=== PATIENT | female | born 1990 | race Caucasian/White ===

== ENCOUNTER 2020-08-05 05:44 | Inpatient (IN) | payer BC, OTHER ==
[2020-08-05] MEDS ORDERED: DINOPROSTONE 10 MG VAGINAL SUPPOSITORY VG ONE (08:56)
[2020-08-05] MEDS ORDERED: BUTORPHANOL TARTRATE 2 MG/ML VIAL IVPUSH PRN (08:56)
[2020-08-05] MEDS ORDERED: PROMETHAZINE HCL 25 MG/1 ML VIAL IVPUSH ONE (08:56)
[2020-08-05 08:58] LABS: BASO % 0.5 % (0-2.0); EOS % 0.5 % (0-4.5); HEMATOCRIT 39.1 % (32.4-45.2); HEMOGLOBIN 13.5 GM/dL (10.7-15.3); LYMPH % 11.1 % (8-40); MCH 35.1 pg (25.7-33.7); MCHC 34.4 g/dl (32.0-36.0); MEAN PLT VOLUME 8.7 fl (7.5-11.1); MONO % 10.6 % (3.8-10.2); NEUT % 77.3 % (42.8-82.8); PLATELET COUNT 192 K/MM3 (134-434); RBC 3.83 M/mm3 (3.60-5.2); RDW 13.3 % (11.6-15.6); WHITE BLOOD COUNT 13.2 K/mm3 (4.0-10.0)
[2020-08-05] MEDS ORDERED: AMPICILLIN - 2 GM in SODIUM CHLORIDE 100 ML IVPB ONE (08:58)
[2020-08-05] MEDS ORDERED: DEXTROSE 5%-LACTATED RINGERS 1,000 ML IV SCH (09:00)
--- NOTE | 2020-08-05 09:00 | HP ---
Past Medical History - Primary Care Physician PCP:: Matthew Jc - Admission Chief Complaint: 40 weeks , for induction of labor History of Present Illness: 30 yo f 40 weeks came to L&D with vaginal spotting and cramps, cx 2 cm 70 vx -3 , mi ,fhr cat 1, irregular contraction , induction with favaroable cervix discussed , wants to be induced , risks of cervidil discussed History Source: Patient Limitations to Obtaining History: No Limitations - Past Medical History ...: 1 ...Para: 0 ...Term: 0 ...: 0 ...Spon : 0 ...Induced : 0 ...Living Children: 0 ...LMP: 11/02/19 ... Weeks Gestation by Dates: 39.3 ...EDC by Dates: 08/09/20 ...EDC by Sono: 08/05/20 - Past Surgical History Hx Myomectomy: No Hx Transabdominal Cerclage: No - Smoking History Have you smoked in the past 12 months: No - Alcohol/Substance Use Hx Alcohol Use: No History of Substance Use: reports: None - Social History History of Recent Travel: No Home Medications - Allergies Allergies/Adverse Reactions: Allergies Allergy/AdvReac Type Severity Reaction Status Date / Time No Known Allergies Allergy Verified 08/05/20 07:30 - Home Medications Home Medications: Ambulatory Orders Ferrous Sulfate [Iron] 325 mg PO DAILY 08/05/20 Pnv No.95/Ferrous Fum/Folic AC [ Formula] 1 each PO DAILY 08/05/20 Review of Systems - Review of Systems Constitutional: reports: No Symptoms Eyes: reports: No Symptoms HENT: reports: No Symptoms Neck: reports: No Symptoms Cardiovascular: reports: No Symptoms Respiratory: reports: No Symptoms Gastrointestinal: reports: No Symptoms Genitourinary: reports: No Symptoms Breasts: reports: No Symptoms Reported Musculoskeletal: reports: No Symptoms Integumentary: reports: No Symptoms Neurological: reports: No Symptoms Endocrine: reports: No Symptoms Hematology/Lymphatic: reports: No Symptoms Psychiatric: reports: No Symptoms Physical Exam - Maternity Vital Signs: Vital Signs Temperature 98.1 F 08/05/20 05:44 Pulse Rate 108 H 08/05/20 05:44 Respiratory Rate 20 08/05/20 05:44 Blood Pressure 116/70 08/05/20 05:44 O2 Sat by Pulse Oximetry (%) Constitutional: Yes: Well Nourished, No Distress, Calm Eyes: Yes: WNL, Conjunctiva Clear, EOM Intact HENT: Yes: WNL, Atraumatic, Normocephalic Neck: Yes: WNL, Supple, Trachea Midline Cardiovascular: Yes: WNL, Regular Rate and Rhythm Breast(s): Yes: WNL - Abdominal Exam/OB Fundal Height: 38 Number of Fetuses: Single Presentation: Vertex Contractions: Yes Regularity: Irregular Intensity: Mild Monitor Mode: External Heart Rate Location: [facility] Category: I Accelerations: Non-Uniform Decelerations: None - Vaginal Exam/OB Vaginal Bleeding: Bloody Show Speculum Exam: No Dilatation (cm): 2 Effacement (%): 70 Amniotic Membrane Status: Intact Nitrazine Test: Negative Presentation: Vertex/Position Station: -3 - Physical Exam Edema: Yes Edema: LLE: Trace, RLE: Trace Deep Tendon Reflex Grade: Normal +2 Psychiatric: Yes: WNL Hemorrhage Risk Assessment - Risk Factors Medium Risk Factors: Yes: None High Risk Factors: Yes: None Risk Score: 1 Risk Level: Medium Risk Problem List - Problems (1) 40 weeks gestation of Code(s): Z3A.40 - 40 WEEKS GESTATION OF (2) Encounter for induction of labor Code(s): Z34.90 - ENCNTR FOR SUPRVSN OF NORMAL , UNSP, UNSP TRIMESTER Assessment/Plan admit for cervidil induction FHM + GBS in ampicillin prophylaxis pain management
--- NOTE | 2020-08-05 09:01 | PN ---
Progress Note (short form) - Note Progress Note: cervidil risks and benefit discussed cervidil inserted at 850 am
[2020-08-05 09:05] LABS: INR 0.98 (0.83-1.09); PROTHROMBIN TIME (PATIENT) 11.6 SEC (9.7-13.0)
[2020-08-05 09:08] LABS: ACTIVATED PTT 27.4 SECONDS (25.2-36.5)
[2020-08-05 09:37] LABS: BLOOD UREA NITROGEN 9.7 mg/dL (7-18); CALCIUM 9.5 mg/dL (8.5-10.1); CREATININE 0.4 mg/dL (0.55-1.3); POTASSIUM 4.1 mmol/L (3.5-5.1)
[2020-08-05 09:54] LABS: ANISOCYTOSIS 1+; MACROCYTOSIS 1+; PLATELET ESTIMATE NORMAL
[2020-08-05 10:11] VITALS: BMI 25.4
[2020-08-05] MEDS ORDERED: AMPICILLIN SODIUM 2 GM VIAL ONE (13:44)
[2020-08-05 14:20] LABS: POC NITRAZINE POS
--- NOTE | 2020-08-05 14:24 | PN ---
Progress Note (short form) - Note Progress Note: cx 4 cm, 80 vx -2 mr, fhr cat 1regular contraction cervidil removed wants epidural Problem List - Problems (1) 40 weeks gestation of Code(s): Z3A.40 - 40 WEEKS GESTATION OF (2) Encounter for induction of labor Code(s): Z34.90 - ENCNTR FOR SUPRVSN OF NORMAL , UNSP, UNSP TRIMESTER
[2020-08-05] MEDS ORDERED: ELECTROLYTE-148 SOLN 1,000 ML IV SCH (14:30)
[2020-08-05] MEDS ORDERED: FENTANYL/BUPIVACAINE/NS/PF - PCEA - 50 ML DISP.SYRIN EP ONE (14:33)
[2020-08-05] MEDS ORDERED: PCA PUMP NR ONE (14:33)
[2020-08-05] MEDS ORDERED: BUPIVACAINE HCL/PF 0.25% (2.5MG/ML) 10 ML VIAL ONE (14:45)
[2020-08-05] MEDS ORDERED: NALOXONE HCL 0.4 MG/ML VIAL IVPUSH PRN (15:15)
[2020-08-05] MEDS ORDERED: FENTANYL/BUPIVACAINE/NS/PF - PCEA - 50 ML DISP.SYRIN EP SCH (15:15)
[2020-08-05] MEDS ORDERED: OXYTOCIN 30 UNITS in 0.9% NS 30 UNIT/500 ML INFUS.BAG IVPB SCH (15:30)
--- NOTE | 2020-08-05 17:03 | PN ---
Progress Note (short form) - Note Progress Note: cx 5 cm, has cont. variable decel with each contraction to 80 t0 90 beats , avarage variability, light mec AF , recitation done .LT side , o2, iv fluids with no resolution Problem List - Problems (1) 40 weeks gestation of Code(s): Z3A.40 - 40 WEEKS GESTATION OF (2) Encounter for induction of labor Code(s): Z34.90 - ENCNTR FOR SUPRVSN OF NORMAL , UNSP, UNSP TRIMESTER
[2020-08-05] MEDS ORDERED: CITRIC ACID/SODIUM CITRATE 30 ML UNIT-DOSE CUP PO ONE (17:04)
[2020-08-05] MEDS ORDERED: ONDANSETRON 4 MG/2 ML VIAL IVPUSH PRN (17:09)
[2020-08-05] MEDS ORDERED: LIDO 2%/EPI 1:200000 PRESRVFRE (20 ML SDVIAL) ONE (17:16)
[2020-08-05] MEDS ORDERED: ceFAZolin SODIUM 1 GM VIAL ONE (17:27)
[2020-08-05] MEDS: AMPICILLIN - 1 GM in SODIUM CHLORIDE 100 ML IVPB SCH ×3 (17:41→23:48)
[2020-08-05] MEDS ORDERED: morphine SULFATE/PF 0.5 MG/ML (2cc Syringe - QUVA) ONE ×3 (17:58)
[2020-08-05] MEDS ORDERED: diphenhydrAMINE HCL 25 MG CAPSULE (FP) PO PRN (18:08)
[2020-08-05] MEDS ORDERED: WITCH HAZEL 50% (TUCKS) 40 PAD/JAR PAD TP PRN (18:08)
[2020-08-05] MEDS ORDERED: BENZOCAINE 20% 57 GM BOTTLE TP PRN (18:08)
[2020-08-05] MEDS ORDERED: BENZOCAINE 28 GM HEMORRHOIDAL OINTMENT RC PRN (18:08)
[2020-08-05] MEDS ORDERED: METHYLERGONOVINE MALEATE 0.2 MG/1 ML AMP IM PRN (18:08)
--- NOTE | 2020-08-05 18:11 | OP ---
Operative Note - Note: Operative Date: 08/05/20 Pre-Operative Diagnosis: 40 weeks , labor, FHR cat 2 , variable decelration Operation: primary LST c/s Findings: live baby girl 8/9, compound presentaion hand in front of head, light mec A.F Surgeon: Matthew Jc Etl Analyst Developer: Ranjan Monroe Specimens Removed: placenta Estimated Blood Loss (mls): 500 Drains & Tubes with Location: chand Blood Volume Replaced (mls): 0 Operative Report Dictated: Yes
[2020-08-05] MEDS ORDERED: OXYTOCIN 20 UNITS in 0.9% NS 20 UNIT/1,000 ML INFUS.BAG IV SCH (18:15)
--- NOTE | 2020-08-05 18:18 | PN ---
Progress Note (short form) - Note Progress Note: I assisted Dr. Jc at section for the entirety of the case.
[2020-08-05 18:22] LABS: CORD HCO3 25.3 mmHg (20-29); CORD PCO2 55.3 mmHg (30-78); CORD pH 7.279 (7.14-7.44)
[2020-08-05 18:36] LABS: CORD BASE EXCESS -2.4 mmol/L (0-2); CORD HCO3 23.5 mmHg (20-29); CORD PCO2 44.6 mmHg (30-78); CORD pH 7.34 (7.14-7.44)
[2020-08-05] MEDS ORDERED: OXYTOCIN 20 UNITS in 0.9% NS 20 UNIT/1,000 ML INFUS.BAG IV ONE (18:56)
[2020-08-05] MEDS: IBUPROFEN 800 MG/8 ML IJ IVPB PRN (20:28)
[2020-08-06] MEDS: CEFAZOLIN 1 GM/D5W 1 GM/50 ML BAG IVPB SCH ×2 (01:40→09:35)
[2020-08-06] MEDS: IBUPROFEN 800 MG/8 ML IJ IVPB PRN ×2 (03:38→10:17)
--- NOTE | 2020-08-06 06:50 | PN ---
Post Progress Note - Subjective Subjective: Not yet ambulating, no N/V, lochia present, chand in place Post Day: 1 Type of Delivery: Primary C/S Vital Signs: Vital Signs Temperature 98.6 F 08/06/20 04:00 Pulse Rate 84 08/06/20 04:00 Respiratory Rate 20 08/06/20 05:54 Blood Pressure 96/56 L 08/06/20 04:00 O2 Sat by Pulse Oximetry (%) 98 08/06/20 04:00 Breast Exam: Yes: Other Uterus: Yes: Fundus Firm Incision: Yes: Dressing dry and intact, Sutures intact Abdomen/GI: Yes: Abdomen soft Lochia, amount: Moderate Extremities: Yes: Calves non-tender Perineum: Yes: Intact - Labs Labs: CBC WBC 13.2 K/mm3 (4.0-10.0) H 08/05/20 08:50 RBC 3.83 M/mm3 (3.60-5.2) 08/05/20 08:50 Hgb 13.5 GM/dL (10.7-15.3) 08/05/20 08:50 Hct 39.1 % (32.4-45.2) 08/05/20 08:50 MCV 102.0 fl (80-96) H 08/05/20 08:50 MCH 35.1 pg (25.7-33.7) H 08/05/20 08:50 MCHC 34.4 g/dl (32.0-36.0) 08/05/20 08:50 RDW 13.3 % (11.6-15.6) 08/05/20 08:50 Plt Count 192 K/MM3 (134-434) 08/05/20 08:50 MPV 8.7 fl (7.5-11.1) 08/05/20 08:50 Absolute Neuts (auto) 10.2 K/mm3 (1.5-8.0) H 08/05/20 08:50 Neutrophils % 77.3 % (42.8-82.8) 08/05/20 08:50 Neutrophils % (Manual) 63.4 % (42.8-82.8) 08/05/20 08:50 Band Neutrophils % 7.9 % 08/05/20 08:50 Lymphocytes % 11.1 % (8-40) 08/05/20 08:50 Lymphocytes % (Manual) 9.9 % (8-40) 08/05/20 08:50 Monocytes % 10.6 % (3.8-10.2) H 08/05/20 08:50 Monocytes % (Manual) 11 % (3.8-10.2) H 08/05/20 08:50 Eosinophils % 0.5 % (0-4.5) 08/05/20 08:50 Eosinophils % (Manual) 1.0 % (0-4.5) 08/05/20 08:50 Basophils % 0.5 % (0-2.0) 08/05/20 08:50 Basophils % (Manual) 0.0 % (0-2.0) 08/05/20 08:50 Myelocytes % (Man) 3 % (0-2) H 08/05/20 08:50 Promyelocytes % (Man) 0 % (0-2) 08/05/20 08:50 Blast Cells % (Manual) 0 % (0-0) 08/05/20 08:50 Nucleated RBC % 0 % (0-0) 08/05/20 08:50 Metamyelocytes 0 % (0-2) 08/05/20 08:50 Hypochromia 0 08/05/20 08:50 Platelet Estimate Normal 08/05/20 08:50 Polychromasia 0 08/05/20 08:50 Poikilocytosis 0 08/05/20 08:50 Anisocytosis 1+ 08/05/20 08:50 Microcytosis 0 08/05/20 08:50 Macrocytosis 1+ 08/05/20 08:50 Assessment/Plan 30 y/o on POD # 1 in stable condition -Continue inpatient care -Encourage ambulation -AM CBC
[2020-08-06 08:09] LABS: BASO % 0.1 % (0-2.0); EOS % 0.2 % (0-4.5); HEMATOCRIT 33.7 % (32.4-45.2); HEMOGLOBIN 11.6 GM/dL (10.7-15.3); LYMPH % 8.5 % (8-40); MCH 35.1 pg (25.7-33.7); MCHC 34.3 g/dl (32.0-36.0); MEAN CELL VOLUME 102.4 fl (80-96); MEAN PLT VOLUME 8.8 fl (7.5-11.1); MONO % 10.3 % (3.8-10.2); NEUT % 80.9 % (42.8-82.8); PLATELET COUNT 163 K/MM3 (134-434); RBC 3.29 M/mm3 (3.60-5.2); RDW 13.5 % (11.6-15.6); WHITE BLOOD COUNT 15.1 K/mm3 (4.0-10.0)
--- NOTE | 2020-08-06 08:23 | PN ---
Progress Note (short form) - Note Progress Note: Post Anesthesia post op check Patient seen at bedside, s/p c section under epidural anesthesia with duramorph for post op pain control. Pt doing well, pain controlled, no nausea or vomiting, itching controlled, no headache, no anesthetic complications, dept of anesthes iology will sign off care at this time
[2020-08-06] MEDS: ENOXAPARIN NA (PORCINE) 40 MG/0.4 ML DISP.SYRIN SQ SCH (09:36)
[2020-08-06 11:13] LABS: ANISOCYTOSIS 2+; MACROCYTOSIS 2+; PLATELET ESTIMATE NORMAL
[2020-08-06] MEDS: ACETAMINOPHEN 325 MG TABLET (FP) PO PRN (16:00)
[2020-08-06] MEDS: SIMETHICONE 80 MG TAB.CHEW (FP) PO PRN ×2 (16:00→20:06)
[2020-08-06] MEDS: IBUPROFEN 600 MG TABLET (FP) PO PRN ×2 (16:00→20:06)
[2020-08-06] MEDS: oxyCODONE HCL 5 MG TABLET PO PRN (20:04)
[2020-08-07] MEDS: SIMETHICONE 80 MG TAB.CHEW (FP) PO PRN ×3 (03:23→18:41)
[2020-08-07] MEDS: IBUPROFEN 600 MG TABLET (FP) PO PRN ×3 (03:23→22:41)
[2020-08-07] MEDS: oxyCODONE HCL 5 MG TABLET PO PRN ×3 (03:24→18:41)
--- NOTE | 2020-08-07 08:12 | PN ---
Post Progress Note - Subjective Subjective: c/o pain scale 8/10 before pain meds voiding without difficulty oob Post Day: 2 Type of Delivery: Primary C/S Vital Signs: Vital Signs Temperature 98.5 F 08/06/20 22:00 Pulse Rate 90 08/06/20 22:00 Respiratory Rate 18 08/06/20 22:00 Blood Pressure 99/63 08/06/20 22:00 O2 Sat by Pulse Oximetry (%) 97 08/06/20 14:00 Breast Exam: Yes: Soft. No: Engorged (breast full, encouraged to BF ) Uterus: Yes: Fundus Firm, Fundus below umbilicus, Non-tender Incision: Yes: Sutures intact. No: Redness, Oozing Abdomen/GI: Yes: Abdomen soft, Passing flatus, Tolerating PO (diet ). No: Abdominal Distention Lochia: Yes: Rubra Lochia, amount: Small Extremities: Yes: Calves non-tender Perineum: Yes: Intact Activity: Ambulating - Labs Labs: CBC WBC 15.1 K/mm3 (4.0-10.0) H 08/06/20 07:40 RBC 3.29 M/mm3 (3.60-5.2) L 08/06/20 07:40 Hgb 11.6 GM/dL (10.7-15.3) 08/06/20 07:40 Hct 33.7 % (32.4-45.2) 08/06/20 07:40 MCV 102.4 fl (80-96) H 08/06/20 07:40 MCH 35.1 pg (25.7-33.7) H 08/06/20 07:40 MCHC 34.3 g/dl (32.0-36.0) 08/06/20 07:40 RDW 13.5 % (11.6-15.6) 08/06/20 07:40 Plt Count 163 K/MM3 (134-434) 08/06/20 07:40 MPV 8.8 fl (7.5-11.1) 08/06/20 07:40 Absolute Neuts (auto) 12.2 K/mm3 (1.5-8.0) H 08/06/20 07:40 Neutrophils % 80.9 % (42.8-82.8) 08/06/20 07:40 Neutrophils % (Manual) 75.0 % (42.8-82.8) 08/06/20 07:40 Band Neutrophils % 5.0 % 08/06/20 07:40 Lymphocytes % 8.5 % (8-40) D 08/06/20 07:40 Lymphocytes % (Manual) 10.0 % (8-40) 08/06/20 07:40 Monocytes % 10.3 % (3.8-10.2) H 08/06/20 07:40 Monocytes % (Manual) 6 % (3.8-10.2) 08/06/20 07:40 Eosinophils % 0.2 % (0-4.5) 08/06/20 07:40 Eosinophils % (Manual) 1.0 % (0-4.5) 08/06/20 07:40 Basophils % 0.1 % (0-2.0) 08/06/20 07:40 Basophils % (Manual) 0.0 % (0-2.0) 08/06/20 07:40 Myelocytes % (Man) 0 % (0-2) D 08/06/20 07:40 Promyelocytes % (Man) 0 % (0-2) 08/06/20 07:40 Blast Cells % (Manual) 0 % (0-0) 08/06/20 07:40 Nucleated RBC % 0 % (0-0) 08/06/20 07:40 Metamyelocytes 1 % (0-2) D 08/06/20 07:40 Hypochromia 0 08/06/20 07:40 Platelet Estimate Normal 08/06/20 07:40 Polychromasia 1+ 08/06/20 07:40 Poikilocytosis 0 08/06/20 07:40 Anisocytosis 2+ 08/06/20 07:40 Microcytosis 0 08/06/20 07:40 Macrocytosis 2+ 08/06/20 07:40 Problem List - Problems (1) Status post section routine follow-up Code(s): Z39.2 - ENCOUNTER FOR ROUTINE FOLLOW-UP; Z98.891 - HISTORY OF UTERINE SCAR FROM PREVIOUS SURGERY Assessment/Plan s/p post primary c/section day #[address] po care
[2020-08-07] MEDS: ENOXAPARIN NA (PORCINE) 40 MG/0.4 ML DISP.SYRIN SQ SCH (09:08)
[2020-08-07] MEDS: ACETAMINOPHEN 325 MG TABLET (FP) PO PRN ×4 (09:09→22:41)
[2020-08-07] MEDS: BISACODYL 10 MG SUPP.RECT PR PRN (09:16)
[2020-08-07] MEDS ORDERED: SENNOSIDES/DOCUSATE COMBO (SENNA PLUS) TABLET (UD) PO PRN (22:00)
[2020-08-08] MEDS: IBUPROFEN 600 MG TABLET (FP) PO PRN ×2 (06:00→20:21)
[2020-08-08] MEDS: ACETAMINOPHEN 325 MG TABLET (FP) PO PRN ×3 (06:02→20:22)
[2020-08-08] MEDS: SIMETHICONE 80 MG TAB.CHEW (FP) PO PRN ×2 (06:03→20:22)
--- NOTE | 2020-08-08 08:18 | PN ---
Post Progress Note - Subjective Subjective: Pain controlled. Discomfort when getting out of bed Passing flatus. No fevers/chills Notes breast engorgement, unable to express milk still Type of Delivery: Primary C/S Vital Signs: Vital Signs Temperature 98.6 F 08/08/20 06:00 Pulse Rate 72 08/08/20 06:00 Respiratory Rate 18 08/08/20 06:00 Blood Pressure 121/69 08/08/20 06:00 O2 Sat by Pulse Oximetry (%) 97 08/06/20 14:00 Breast Exam: Yes: Engorged Uterus: No: Fundus Firm, Fundus above umbilicus, Fundus @ umbilicus, Fundus below umbilicus, Non-tender, Other Incision: No: Dressing dry and intact, Superior intact, Sutures intact, Redness, Oozing, Other Abdomen/GI: Yes: Abdomen soft (+gas), Abdominal Distention, Passing flatus, T olerating PO. No: Tender, Other Lochia: Yes: Rubra Lochia, amount: Small Extremities: Yes: Calves non-tender Perineum: Yes: Intact Activity: Ambulating - Labs Labs: CBC WBC 15.1 K/mm3 (4.0-10.0) H 08/06/20 07:40 RBC 3.29 M/mm3 (3.60-5.2) L 08/06/20 07:40 Hgb 11.6 GM/dL (10.7-15.3) 08/06/20 07:40 Hct 33.7 % (32.4-45.2) 08/06/20 07:40 MCV 102.4 fl (80-96) H 08/06/20 07:40 MCH 35.1 pg (25.7-33.7) H 08/06/20 07:40 MCHC 34.3 g/dl (32.0-36.0) 08/06/20 07:40 RDW 13.5 % (11.6-15.6) 08/06/20 07:40 Plt Count 163 K/MM3 (134-434) 08/06/20 07:40 MPV 8.8 fl (7.5-11.1) 08/06/20 07:40 Absolute Neuts (auto) 12.2 K/mm3 (1.5-8.0) H 08/06/20 07:40 Neutrophils % 80.9 % (42.8-82.8) 08/06/20 07:40 Neutrophils % (Manual) 75.0 % (42.8-82.8) 08/06/20 07:40 Band Neutrophils % 5.0 % 08/06/20 07:40 Lymphocytes % 8.5 % (8-40) D 08/06/20 07:40 Lymphocytes % (Manual) 10.0 % (8-40) 08/06/20 07:40 Monocytes % 10.3 % (3.8-10.2) H 08/06/20 07:40 Monocytes % (Manual) 6 % (3.8-10.2) 08/06/20 07:40 Eosinophils % 0.2 % (0-4.5) 08/06/20 07:40 Eosinophils % (Manual) 1.0 % (0-4.5) 08/06/20 07:40 Basophils % 0.1 % (0-2.0) 08/06/20 07:40 Basophils % (Manual) 0.0 % (0-2.0) 08/06/20 07:40 Myelocytes % (Man) 0 % (0-2) D 08/06/20 07:40 Promyelocytes % (Man) 0 % (0-2) 08/06/20 07:40 Blast Cells % (Manual) 0 % (0-0) 08/06/20 07:40 Nucleated RBC % 0 % (0-0) 08/06/20 07:40 Metamyelocytes 1 % (0-2) D 08/06/20 07:40 Hypochromia 0 08/06/20 07:40 Platelet Estimate Normal 08/06/20 07:40 Polychromasia 1+ 08/06/20 07:40 Poikilocytosis 0 08/06/20 07:40 Anisocytosis 2+ 08/06/20 07:40 Microcytosis 0 08/06/20 07:40 Macrocytosis 2+ 08/06/20 07:40 Assessment/Plan 30yo s/p PLTCS, POD#3 Routine PP care management consultant needed, reviewed pumping/feeding Abdominal binder Labs reviewed PO pain control D/C to home POD#4 Cachorro Prieto MD
[2020-08-08 08:44] LABS: BASO % 0.1 % (0-2.0); EOS % 1.3 % (0-4.5); HEMATOCRIT 36.9 % (32.4-45.2); HEMOGLOBIN 12.2 GM/dL (10.7-15.3); LYMPH % 6.8 % (8-40); MCH 33.6 pg (25.7-33.7); MCHC 33.1 g/dl (32.0-36.0); MEAN CELL VOLUME 101.7 fl (80-96); MEAN PLT VOLUME 8.5 fl (7.5-11.1); MONO % 6.4 % (3.8-10.2); NEUT % 85.4 % (42.8-82.8); PLATELET COUNT 202 K/MM3 (134-434); RBC 3.63 M/mm3 (3.60-5.2); RDW 13.4 % (11.6-15.6); WHITE BLOOD COUNT 12.2 K/mm3 (4.0-10.0)
[2020-08-08 09:46] LABS: ANISOCYTOSIS 1+; MACROCYTOSIS 1+; PLATELET ESTIMATE NORMAL
[2020-08-08] MEDS: ENOXAPARIN NA (PORCINE) 40 MG/0.4 ML DISP.SYRIN SQ SCH (10:02)
[2020-08-08] MEDS: oxyCODONE HCL 5 MG TABLET PO PRN (13:42)
[2020-08-08] MEDS: BISACODYL 10 MG SUPP.RECT PR PRN ×2 (13:47→22:17)
[2020-08-08 20:40] VITALS: PULSE 80
[2020-08-08] MEDS ORDERED: oxyCODONE HCL 5 MG TABLET PO PRN (22:29)
--- NOTE | 2020-08-09 07:15 | DS ---
Physical Exam-CUTTING TOOL SHARPENER Vital Signs: Vital Signs Temperature 97.9 F 08/08/20 20:37 Pulse Rate 80 08/08/20 20:37 Respiratory Rate 18 08/08/20 20:37 Blood Pressure 110/73 08/08/20 20:37 O2 Sat by Pulse Oximetry (%) 97 08/08/20 20:37 Constitutional: Yes: Well Nourished, No Distress, Calm Eyes: Yes: WNL, Conjunctiva Clear, EOM Intact HENT: Yes: WNL, Atraumatic, Normocephalic Neck: Yes: WNL, Supple, Trachea Midline Cardiovascular: Yes: WNL, Regular Rate and Rhythm Respiratory: Yes: WNL, Regular, CTA Bilaterally Gastrointestinal: Yes: WNL ...Rectal Exam: Yes: WNL Renal/: Yes: WNL ....Post : Yes: Uterus firm, Uterus non-tender Breast(s): Yes: WNL Musculoskeletal: Yes: WNL Extremities: Yes: WNL Integumentary: Yes: WNL Wound/Incision: Yes: Clean/Dry, Well Approximated, Sutures Intact Neurological: Yes: WNL, Alert, Oriented ...Motor Strength: WNL Psychiatric: Yes: WNL, Alert, Oriented Labs: CBC, BMP 08/08/20 07:40 08/05/20 08:50 Delivery - Delivery Section: Primary, Low Flap Transverse Type of Anesthesia: Epidural Episiotomy/Laceration: None EBL (cc): 500 Delivery, Single - Stages of Labor Date 1st Stage Initiatied: 08/05/20 Time 1st Stage Initiated: 02:00 Date of Delivery: 08/05/20 Time of Delivery: 17:35 Time Placenta Delivered: 17:36 Placenta: Yes: Expressed - Condition of Skip Tracer/Breast Splitter Present: Yes Name: Belkys Erickson Infant Gender: Female Weight: 6 lb 15 oz Position: OP Total Hours ROM (Hrs/Mins): 4hrs/46mins - 1 Minute Total Score: 8 5 Minutes Total Score: 9 - [place] Feeding Plan Initial Plan: Elected not to breastfeed exclusively throughout hospitalization Discharge Summary Problems reviewed: Yes Reason For Visit: LABOR ADMISSION Current Active Problems 40 weeks gestation of (Acute) Encounter for induction of labor (Acute) Status post section routine follow-up (Acute) Procedures: Principal: primary LST c/s Hospital Course: no complication Plan of Treatment: follow up [facility] 1 week Condition: Stable - Instructions Diet, Activity, Other Instructions: Regular Diet Follow up one week for an incision check Referrals: Matthew Jc MD [Staff Physician] - Disposition: HOME - Home Medications Comprehensive Discharge Medication List: Ambulatory Orders Ferrous Sulfate [Iron] 325 mg PO DAILY 08/05/20 Pnv No.95/Ferrous Fum/Folic AC [ Formula] 1 each PO DAILY 08/05/20 Breast Pump 1 each MC 5XD 30 Days #1 each 08/07/20 Ferrous Sulfate [Feosol] 325 mg PO DAILY #30 tablet 08/07/20 Ibuprofen 600 mg PO Q6H PRN #30 tablet 08/07/20 Oxycodone HCl/Acetaminophen [Percocet 5-325 mg Tablet -] 1 - 2 tab PO Q6H PRN #20 tab MDD 4 08/07/20
[2020-08-09] MEDS: ENOXAPARIN NA (PORCINE) 40 MG/0.4 ML DISP.SYRIN SQ SCH (10:01)
[2020-08-09 15:36] VITALS: BP 118/72; TEMP 98
--- NOTE | 2020-08-09 16:45 | OP ---
DATE OF OPERATION: 08/05/2020 PREOPERATIVE DIAGNOSIS: 40 weeks labor, heart rate category two with persistent variable deceleration, failure to dilate. POSTOPERATIVE DIAGNOSIS: 40 weeks labor, heart rate category two with persistent variable deceleration, failure to dilate. PROCEDURE: Primary low segment transverse section. SURGEON: Matthew Jc MD. PAPER CONSERVATOR: Ranjan Monroe MD. ESTIMATED BLOOD LOSS: 500 mL. FINDINGS: Live baby girl Apgars 8 and 9, compound presentation with hand in front of the head and the light amniotic fluid meconium. OPERATION: Patient was taken to operating room under goo epidural anesthesia. Abdomen and perineum were prepped and draped. Pfannenstiel abdominal skin incision was made. Abdominal wall was cut layer by layer until the peritoneum was exposed and incised. Upon entering the abdominal cavity, the lower uterine segment was identified, and uterovesical fold of the peritoneum was established. The bladder was pushed down. Then a low transverse incision was made with the scalpel and it was extended laterally with bandage scissors. Amniotic sac was entered. Head delivered. There was a compound presentation with hand in front of the head. Baby was delivered without any difficulty. Then live baby girl, Apgars 8 and 9. Placenta was delivered manually. Uterine cavity was cleaned of membranes, and then uterine incision was closed in 2 layers, the 1st layer with 0 Biosyn continuous suture, the 2nd layer with 0 Biosyn imbricating the 1st layer. Bladder flap was closed with 0 Biosyn continuous suture. Both tubes and ovaries were checked and were normal. No active bleeding was seen. All the lap, sponge, and instrument counts were correct. Peritoneum was closed with 0 Biosyn continuous suture. Muscles were brought together interrupted suture with 0 Biosyn. Fascia was closed with 0 Biosyn continuous sutures. Subcutaneous fat with interrupted sutures 0 Biosyn, and the skin was closed with 3-0 Vicryl subcuticular continuous suture. The patient tolerated the procedure well and left the OR in good condition. MATTHEW JC M.D. [id number]
--- NOTE | 2020-08-12 15:49 | PATH ---
Surgical Pathology Report Patient Name: KENDY QUINN Med. Rec. #: [id number] /Age/Gender: 1990 (Age: 30) / F Account: [id number] Location: [facility] OBS/RANGELAND MANAGEMENT SPECIALIST Taken: 08/05/2020 Received: 08/06/2020 Reported: 08/12/2020 Physicians: Matthew Jc M.D. Specimen(s) Received PLACENTA Clinical History , 40 weeks, nonreassuring heart rate Final Diagnosis PLACENTA: THIRD TRIMESTER PLACENTA. TRIVASCULAR CORD. MEMBRANES WITH NO DIAGNOSTIC ABNORMALITIES. Electronically Signed So Snow M.D. Gross Description The specimen is received fresh labeled placenta and is a 409 gram, 18.0 x 15.5 x 2.5 cm. placenta with attached membranes and umbilical cord. The attached membranes are reed, translucent with focal opacities and insert marginally. The umbilical cord measures 15 cm. in length and averages 0.9 cm. in diameter. The cord inserts eccentrically, 2 cm. to the nearest margin. No true knots or strictures are identified. Cut surface of the umbilical cord reveals 3 vessels. The surface is pina-blue with minimal fibrin deposition and appropriate caliber vessels. The maternal surface is red-brown with focal defects. Sectioning reveals red-brown, spongy parenchyma. No lesions are identified. Bridge Maintainer sections are submitted in three cassettes as follows: 1- membrane rolls and umbilical cord; 2-3- full thickness sections of placenta. /08/07/2020 [facility]08/07/2020
== END 2020-08-09 14:30 | disposition home or self-care (01) | DRG 788 ==
LOC: JDEL 05:44 → JLDR 08:15 → J3W 20:00
PROVIDERS: ADMIT Obstetrics & Gynecology; ATTEND Obstetrics & Gynecology
PROC: 10D00Z1 Extraction of Products of Conception, Low, Open Approach (ICD-10-PCS; principal; 2020-08-05)
PROC: 3E0P7VZ Introduction of Hormone into Female Reproductive, Via Natural or Artificial Opening (ICD-10-PCS; 2020-08-05)
DX: O76 Abnormality in fetal heart rate and rhythm complicating labor and delivery (principal); O48.0 Post-term pregnancy; O99.824 Streptococcus B carrier state complicating childbirth; O77.0 Labor and delivery complicated by meconium in amniotic fluid; Z3A.40 40 weeks gestation of pregnancy; Z37.0 Single live birth; O32.6XX0 Maternal care for compound presentation, not applicable or unspecified
CPT/HCPCS: 36415; 36600; 59025; 80048; 82803; 83986-QW; 85025; 85610; 85730; 86780; 86850; 86900; 86901; 88307-TC; C9803; U0003